=== PATIENT | male | born 2000 | race African-American/Black ===

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

== ENCOUNTER 2024-10-02 22:06 | Emergency (ER) | payer MEDICAID, OTHER ==
[~2024-10-02] VITALS: Ht 175.3 cm; Wt 69.0 kg
[2024-10-02 22:22] VITALS: O2SAT 100
[2024-10-02] MEDS ORDERED: BO1 TP (23:45)
[2024-10-02] MEDS ORDERED: AMOX1TAB16 MT (23:45)
[2024-10-02] MEDS: TETANUS, DIPHTHERIA, PERTUSSIS VAC/PF 0.5ML (>10YR OLD) IM ONE (23:48)
[2024-10-02] MEDS: KETOROLAC 30MG/ML VIAL IM ONE (23:49)
[2024-10-02 23:55] VITALS: BP 127/67; PULSE 64; RESP 18; TEMP 36.9; O2SAT 100
== END 2024-10-02 23:57 | disposition home or self-care (01) ==
LOC: ER 22:06
DX: S60.032A Contusion of left middle finger without damage to nail, initial encounter (principal); S61.253A Open bite of left middle finger without damage to nail, initial encounter; Z79.899 Other long term (current) drug therapy; Z23 Encounter for immunization; W54.0XXA Bitten by dog, initial encounter; Y93.89 Activity, other specified; Y92.89 Other specified places as the place of occurrence of the external cause; Y99.8 Other external cause status
CPT/HCPCS: 99284; 90715; 90471; 96372; J1885